=== PATIENT | male | born 1965 | race Caucasian/White ===

== ENCOUNTER → 2021-01-31 08:38 | Outpatient (CLI) | payer MEDICARE, OTHER, SELFPAY ==
[2021-01-31 11:31] LABS: COVID19 -Nasal RAPID Negative (Negative)
== END ==
PROVIDERS: Visit Provider Specialist
DX: Z20.822 Contact with and (suspected) exposure to COVID-19 (principal); Z01.812 Encounter for preprocedural laboratory examination
CPT/HCPCS: 87635; C9803

== ENCOUNTER 2021-02-01 07:54 | Day surgery (SDC) | payer MEDICARE, OTHER, SELFPAY ==
--- NOTE | 2021-02-01 | PATH_ITS ---
[facility] Accession Number: [id number] . 01 Material submitted: . body - POLYP AT 120CM . 02 Diagnosis: Polyp at 120 cm, Biopsy: Tubular adenoma. MRV 02/04/2021 1332 Local . 02 Electronically signed: . Rik Bateman MD, PhD, Pathologist NPI- [id number] . 01 Gross description: . POLYP AT 120CM: Received in formalin are multiple fragment(s) of beauchamp, soft tissue measuring 1.5 x 1.0 x 0.5 cm in aggregate submitted entirely in 1 cassette(s) /QBJ 02/02/2021 0535 Local . 02 Pathologist provided ICD-10: D12.6 . 02 CPT . 560100 Performed at: 01 [facility] [address], [place], [place] [id number] MD Kenneth Stewart MD Phone: [phone] Performed at: 02 [facility] [address] [place], [place] [id number] MD Lesley Farmer MD Phone: [phone]
[2021-02-01 08:38] VITALS: BMI 34.2
[2021-02-01 09:05] VITALS: BP 152/85; PULSE 56; RESP 16; TEMP 36.1; O2SAT 97
[2021-02-01] MEDS: LACTATED RINGERS 1,000 ML 200 ML IV (09:07)
--- NOTE | 2021-02-01 09:14 | PM.HP.1 ---
History of Present Illness History of Present Illness Chief complaint: [facility] [place] Narrative: The patient is a gentleman here for a screening colonoscopy. Last exam was 5 years ago. He had polyps removed at that time. He has chronic diarrhea related to his treatment for multiple myeloma. Patient History Medical History Chronic diarrhea Enlarged prostate Multiple myeloma Surgical History Previous back surgery Family & Social History Social History: household members spouse Tobacco & Substance use: Tobacco type cigars Smoking Status Current every day smoker alcohol intake former Substance Use Type does not use Meds Home Medications and Allergies Home Medications Medication Instructions Recorded Confirmed Type NAPROXEN (NAPROSYN) 500 mg PO PRN #0 11/17/12 02/01/21 History VITAMIN D (Vitamin D3) 1,000 unit PO QDAY #0 11/17/12 02/01/21 History acetaminophen 500 mg tablet 1,000 mg PO PRN #0 11/17/12 02/01/21 History (Tylenol Extra Strength) aspirin 325 mg tablet,delayed 325 mg PO QDAY #0 11/17/12 02/01/21 History release sildenafil 100 mg tablet (Viagra) 100 mg PO PRN #0 11/17/12 02/01/21 History lenalidomide 10 mg capsule 10 mg PO DAILY #0 03/21/16 02/01/21 History (Revlimid) potassium chloride 8 mEq 10 meq PO QDAY #0 01/10/17 History tablet,extended release (Klor-Con) tadalafil 5 mg tablet (Cialis) 5 mg PO QDAY #0 01/10/17 02/01/21 History Wellbutrin 300 mg PO DAILY 02/01/21 02/01/21 History Allergies Allergy/AdvReac Type Severity Reaction Status Date / Time cholestyramine Allergy Severe Weakness Verified 02/01/21 08:54 Review of Systems Review of Systems Narrative: No pulmonary issues. No prior heart attack. He has longstanding intermittent bigeminy. He has had multiple cardiac workups for this that have been negative. Patient has no black bowel movements. He has chronic loose stool. He is under treatment chronically for multiple myeloma. Exam Vital Signs (past 8 hours): - 02/01/21 09:05 Temperature 97.0 F L Pulse Rate 56 L Respiratory Rate 16 Blood Pressure 152/85 H Pulse Oximetry 97 Oxygen Delivery Method Room Air Narrative Exam Narrative: Pleasant cooperative patient no apparent distress. Lungs are clear to auscultation. No rales or rhonchi. Heart regular rate and rhythm no murmur gallop. Abdomen is soft nontender without mass. He has a large diastasis recti the and a reducible umbilical hernia. . Patient is alert and oriented x3. Assessment & Plan Assessment and plan (1) Screening for colon cancer: Status: Acute Assessment & Plan narrative: Patient here for screening colonoscopy. I have discussed the procedure and the rationale with the patient including risks of bleeding, perforation which would necessitate a major operation, failure to find remove all lesions and the potential to tattoo. They appeared to understand and wished to proceed. Time Spent With Patient Critical Care time: I spent a total of [] minutes of critical care time on this patient's care today; this time is exclusive of procedural time.
--- NOTE | 2021-02-01 09:18 | PM.PREOP ---
Pre-operative Note COVID-19 COVID-19 status: Negative Result date/Date tested (Pos, Neg/Pending): 01/31/21 Interval Note History & Physical reviewed/Exam performed by Physician: Yes Changes to H&P: No ASA Class (for procedural sedation): II
--- NOTE | 2021-02-01 10:08 | PM.OP.EC ---
Operative Date/Time/Diagnoses Date of procedure: 02/01/21 Time of procedure: 10:08 Pre-op diagnosis: Screening exam. Personal history of polyps. Last exam 5 years ago. Post-op diagnosis: same (Large flat polyp at 120 cm from the anal verge. Snared in pieces, cauterized and tattooed .) Procedure & Clinicians Study performed: Colonoscopy with hot snare polypectomy and injection of Ana ink. Same procedure as scheduled: Yes Indications: Screening Surgeon: Boone Matos Procedure Notes SCOAP/Timeout: Performed Procedure in detail: The patient was placed in the left lateral decubitus position and underwent IV sedation directed by the surgeon consisting of fentanyl and Versed. Digital exam was remarkable for an increased sphincter tone. It was very difficult to feel this prostate. The scope was inserted and advanced through the rectum into the sigmoid, descending, transverse, and ascending colon. The cecum was reached identified by the ileocecal valve. Beyond the valve there was particulate stool which precluded seeing the cecum well. Each time I tried to irrigate and suction more would enter the cavity. Finally it was too thick to suck out. The scope was gradually brought out. A large flat polyp was identified at about 120 cm from the anal verge. Using a hot snare I removed multiple pieces. This is a very difficult and tedious process due to the patient's constant motion of his colon with very deep breathing exhaling. Was difficult to tell if I had successfully removed all of it. I cauterized the edges. I then injected Ana ink adjacent to the lesion. I slowly brought the scope out. Scope ultimately was retroflexed in the rectum. The appearance was normal except for scarring.. The scope was removed and the patient tolerated the procedure well. Except for the cecum the prep was adequate. Scope withdrawal time: 10 minutes(29 total) Sedation minutes: 46 Specimen(s): other (Portions of polyp) Complications: none Post-procedure Recommendations: Other recommendation (Repeat colonoscopy in approximately 3 months. Consider 2 day bowel prep.) Follow up: months (2 months) Disposition: PACU
[2021-02-01] MEDS: fentaNYL 250 MCG/5 ML INJ IV (10:10)
[2021-02-01 10:11] VITALS: BP 122/66; PULSE 63; RESP 16; TEMP 36.2; O2SAT 94
[2021-02-01] MEDS: MIDAZOLAM 5 MG/5 ML VIAL IV (10:11)
[2021-02-01 10:16] VITALS: BP 126/78; PULSE 71; RESP 15; O2SAT 97
[2021-02-01 10:22] VITALS: BP 126/67; PULSE 65; RESP 16; O2SAT 97
[2021-02-01 10:27] VITALS: BP 109/64; PULSE 55; RESP 16; TEMP 36.4; O2SAT 95
[2021-02-01 10:32] VITALS: BP 109/63; PULSE 59; RESP 16; O2SAT 95
--- NOTE | 2021-02-01 10:45 | SUR.PHASEII ---
discharge instructions given to patient in detail. printed instructions highlighted. questions invited and answered. states understanding
== END 2021-02-01 10:49 | disposition home or self-care (01) ==
PROVIDERS: PCP Internal Medicine; Referring Provider Specialist; Visit Provider Specialist
PROC: 0DJD8ZZ Inspection of Lower Intestinal Tract, Via Natural or Artificial Opening Endoscopic (ICD-10-PCS; CPT 45378; principal; 2021-02-01 09:15)
DX: Z12.11 Encounter for screening for malignant neoplasm of colon (principal); Z86.010 Personal history of colon polyps; C90.00 Multiple myeloma not having achieved remission; K52.89 Other specified noninfective gastroenteritis and colitis; Z72.0 Tobacco use; D12.6 Benign neoplasm of colon, unspecified
CPT/HCPCS: 45381; 45385; 99152; 99153; J2250; J3010

== ENCOUNTER → 2021-04-02 09:49 | Outpatient (CLI) | payer MEDICARE, OTHER, SELFPAY ==
[2021-04-02 11:27] LABS: COVID19 -Nasal RAPID Negative (Negative)
== END ==
PROVIDERS: PCP Internal Medicine; Referring Provider Specialist; Visit Provider Specialist
DX: Z01.812 Encounter for preprocedural laboratory examination (principal); Z20.822 Contact with and (suspected) exposure to COVID-19
CPT/HCPCS: 87635; C9803

== ENCOUNTER 2021-04-03 07:36 | Day surgery (SDC) | payer MEDICARE, OTHER, SELFPAY ==
--- NOTE | 2021-04-03 | PATH_ITS ---
[facility] Accession Number: [id number] . 01 Material submitted: . cecum - CECAL POLYP . 02 Diagnosis: Cecum, Polyp, Biopsy: Tubular adenoma. MRV 04/05/2021 1232 Local . 02 Electronically signed: . Lesley Farmer MD, Pathologist NPI- [id number] . 01 Gross description: . CECAL POLYP: Received in formalin are 3 fragment(s) of beauchamp, soft tissue measuring 0.4 x 0.3 x 0.3 cm to 0.3 x 0.2 x 0.2 cm submitted entirely in 1 cassette(s) /QBJ 04/04/2021 0754 Local . 02 Pathologist provided ICD-10: D12.0 . 02 CPT . 139563 Performed at: 01 [facility] [address] [id number] MD Kenneth Stewart MD Phone: [phone] Performed at: 02 [facility] [address] [place], [place] [id number] MD Lesley Farmer MD Phone: [phone]
[2021-04-03 07:50] VITALS: BP 151/87; PULSE 60; RESP 14; TEMP 36.3; O2SAT 97; BMI 34.2
[2021-04-03] MEDS: LACTATED RINGERS 1,000 ML 200 ML IV (08:23)
--- NOTE | 2021-04-03 08:27 | SUR.PREOP ---
preop-prepared for colonoscopy. Dr Matos here to see patient. patient spoke to MD reardon different instructions on prep. consent obtained. Ready for procedure.
--- NOTE | 2021-04-03 08:33 | PM.HP.1 ---
History of Present Illness History of Present Illness Date Patient Seen: 04/03/21 Time Patient Seen: 08:34 Chief complaint: DX COLONOSCOPY Narrative: The patient is a gentleman here for a colonoscopy. He had a colonoscopy about 3 months ago and I found a large flat polyp. I was concerned I may not have completely remove it and he is here in follow-up. Also, a portion of his colonoscopy was poorly seen due to his prep in we will attempt to evaluate his entire colon. Patient History Medical History Chronic diarrhea Enlarged prostate Multiple myeloma Surgical History Previous back surgery Family & Social History Social History: household members spouse Tobacco & Substance use: Tobacco type cigars Smoking Status Current every day smoker alcohol intake former Substance Use Type does not use Meds Home Medications and Allergies Home Medications Medication Instructions Recorded Confirmed Type VITAMIN D (Vitamin D3) 1,000 unit PO QDAY #0 11/17/12 04/03/21 History acetaminophen 500 mg tablet 1,000 mg PO PRN #0 11/17/12 04/03/21 History (Tylenol Extra Strength) aspirin 325 mg tablet,delayed 325 mg PO QDAY #0 11/17/12 04/03/21 History release lenalidomide 10 mg capsule 10 mg PO DAILY #0 03/21/16 04/03/21 History (Revlimid) potassium chloride 8 mEq 10 meq PO QDAY #0 01/10/17 04/03/21 History tablet,extended release (Klor-Con) tadalafil 5 mg tablet (Cialis) 5 mg PO QDAY #0 01/10/17 04/03/21 History Wellbutrin 300 mg PO DAILY 02/01/21 04/03/21 History sodium,potassium,mag sulfates 17.5 See Rx Instructions PO .COMPLEX 03/06/21 04/03/21 Rx gram-3.13 gram-1.6 gram oral soln #354 ml (Suprep Bowel Prep Kit) doxazosin 2 mg tablet 2 mg PO DAILY 04/03/21 04/03/21 History levothyroxine 125 mcg capsule 0.125 mcg PO DAILY 04/03/21 04/03/21 History (Tirosint) Allergies Allergy/AdvReac Type Severity Reaction Status Date / Time cholestyramine Allergy Severe Weakness Verified 04/03/21 08:02 Review of Systems Review of Systems Narrative: No chest pain or breathing issues. No black or bloody bowel movements. No seizures or blackouts. Exam Vital Signs (past 8 hours): - 04/03/21 07:50 Temperature 97.4 F L Pulse Rate 60 Respiratory Rate 14 Blood Pressure 151/87 H Pulse Oximetry 97 Oxygen Delivery Method Room Air Narrative Exam Narrative: Pleasant cooperative patient no apparent distress. Lungs are clear to auscultation. No rales or rhonchi. Heart regular rate and rhythm no murmur gallop. Abdomen is soft nontender without mass. No obvious hernias. Patient is alert and oriented x3. Assessment & Plan Assessment and plan (1) Colon polyp: Status: Acute Assessment & Plan narrative: Repeat colonoscopy. I have discussed the procedure and the rationale with the patient including risks of bleeding, perforation which would necessitate a major operation, failure to find remove all lesions and the potential to tattoo. He appeared to understand and wished to proceed. Time Spent With Patient Critical Care time: I spent a total of [] minutes of critical care time on this patient's care today; this time is exclusive of procedural time.
--- NOTE | 2021-04-03 08:43 | PM.PREOP ---
Pre-operative Note COVID-19 COVID-19 status: Negative Result date/Date tested (Pos, Neg/Pending): 04/02/21 Interval Note History & Physical reviewed/Exam performed by Physician: Yes Changes to H&P: No ASA Class (for procedural sedation): III
--- NOTE | 2021-04-03 09:26 | PM.OP.COLON ---
Operative Date/Time/Diagnoses Date of procedure: 04/03/21 Time of procedure: 09:26 Pre-op diagnosis: History of a large flat polyp. Post-op diagnosis: same (Additional polyp in the cecum. No evidence of residual polyp seen on prior study.) Procedure & Clinicians Study performed: Colonoscopy with cold biopsy Same procedure as scheduled: Yes Indications: Re-evaluate area of a large flat polyp. Complete colonoscopy due to poor prep of the cecal area. Surgeon: Boone Matos Procedure Notes SCOAP/Timeout: Performed Procedure in detail: The patient was placed in the left lateral decubitus position and underwent IV sedation directed by the surgeon consisting of fentanyl and Versed. Digital exam was remarkable for an increased sphincter tone. I could not feel is prostate well. The scope was inserted and retroflexed at the beginning of the procedure. The appearance was unremarkable. The scope was then advanced through the rectum into the sigmoid, descending, transverse, and ascending colon. A stiffener was inserted and we reach the cecum. The cecum was reached identified by the ileocecal valve . There was a small polyp right at the edge of the cecum which I biopsied and appeared to be completely removed. Scope was gradually brought out. I carefully examined the area of tattooing I could not see any evidence of a polyp despite multiple successful attempts at visualizing the area. This tattooing was located near the ascending colon/hepatic flexure junction. No Other polyps Were found. Coming slowly through the anal verge I did note internal hemorrhoids. There were no ulcerations. The scope was removed and the patient tolerated the procedure well. The prep was very good Scope withdrawal time: 14 minutes(17 total) Sedation minutes: 36 Findings: polyp(s) Specimen(s): other (Cecal polyp) Complications: none Post-procedure Recommendations: Colonoscopy in 3 years Follow up: as needed Disposition: PACU
[2021-04-03] MEDS: MIDAZOLAM 5 MG/5 ML VIAL IV (09:28)
[2021-04-03] MEDS: fentaNYL 250 MCG/5 ML INJ IV (09:29)
[2021-04-03 09:31] VITALS: BP 127/89; PULSE 60; RESP 12; TEMP 36.6; O2SAT 94
[2021-04-03 09:34] VITALS: BP 113/86; PULSE 61; RESP 12; O2SAT 95
[2021-04-03 09:38] VITALS: BP 132/84; PULSE 62; RESP 12; O2SAT 96
[2021-04-03 09:44] VITALS: BP 116/82; PULSE 70; RESP 16; O2SAT 97
[2021-04-03 09:50] VITALS: BP 120/69; PULSE 70; RESP 15; TEMP 36.2; O2SAT 95
== END 2021-04-03 10:06 | disposition home or self-care (01) ==
PROVIDERS: PCP Internal Medicine; Referring Provider Specialist; Visit Provider Specialist
PROC: 0DJD8ZZ Inspection of Lower Intestinal Tract, Via Natural or Artificial Opening Endoscopic (ICD-10-PCS; CPT 45378; principal; 2021-04-03 08:45)
DX: D12.0 Benign neoplasm of cecum (principal); F17.210 Nicotine dependence, cigarettes, uncomplicated
CPT/HCPCS: 45380; 99152; 99153; J2250; J3010

== ENCOUNTER 2022-02-03 09:36 | Emergency (ER) | payer MEDICARE, OTHER, SELFPAY ==
[2022-02-03 09:49] VITALS: BP 183/87; PULSE 58; RESP 18; TEMP 36.9; O2SAT 98; BMI 34.2
--- NOTE | 2022-02-03 09:55 | DI.US.S_ITS ---
PROCEDURE: US PERIPH VENOUS LOW EXTREM LT INDICATIONS: MEDIAL THIGH LUMP TECHNIQUE: Real-time imaging, as well as color and pulse Doppler interrogation, were performed of the lower extremity deep veins from the inguinal ligament to the popliteal fossa. COMPARISON: None. FINDINGS: The common femoral, femoral and popliteal veins are normally compressible, and free of intraluminal thrombus. Color and pulse Doppler demonstrate normal phasic intraluminal flow. There is normal augmentation response to distal compression maneuver. IMPRESSION: No evidence of deep venous thrombosis, left lower extremity Approved by: Jayy Clayton M.D. on 02/03/2022 at 10:02
--- NOTE | 2022-02-03 09:58 | ED_ITS ---
HPI - General Adult General Chief complaint: Extremity Problem,Nontraumatic Stated complaint: deep vain thrombosis per pt Time Seen by Provider: 02/03/22 09:41 Source: patient Mode of arrival: Ambulatory History of Present Illness HPI narrative: 56-year-old gentleman with history of multiple myeloma currently on Revlimid chemotherapy and takes an aspirin a day. Followed at [facility]. He notes that he has not recently been increasingly short of breath he exercises 3 days a week at the gym he does have chronic low back pain that he manages with exercise and stretching. He recently noted a finding in his left upper leg that he is concerned may be a DVT, talk to his nurse at the [facility] who recommended an ultrasound to confirm that this is not the case given his current Revlimid course. He describes no palpitations, chest pain, dyspnea, orthopnea. He does not have any edema in the lower extremities. No recent fever, cough or chills. Related Data Home Medications Medication Instructions Recorded Confirmed acetaminophen 500 mg tablet 1,000 mg PO PRN pain ##0 11/17/12 04/03/21 (Tylenol Extra Strength) aspirin 325 mg tablet,delayed 325 mg PO QDAY ##0 11/17/12 02/03/22 release lenalidomide 10 mg capsule 10 mg PO DAILY chemo ##0 03/21/16 02/03/22 (Revlimid) potassium chloride 8 mEq 10 meq PO QDAY ##0 01/10/17 02/03/22 tablet,extended release (Klor-Con) tadalafil 5 mg tablet (Cialis) 5 mg PO QDAY ##0 01/10/17 04/03/21 doxazosin 2 mg tablet 2 mg PO DAILY 04/03/21 02/03/22 levothyroxine 125 mcg capsule 0.125 mcg PO DAILY 04/03/21 02/03/22 (Tirosint) Previous Rx's Medication Instructions Recorded sodium,potassium,mag sulfates 17.5 See Rx Instructions PO .COMPLEX 03/06/21 gram-3.13 gram-1.6 gram oral soln #354 mL (Suprep Bowel Prep Kit) Allergies Allergy/AdvReac Type Severity Reaction Status Date / Time cholestyramine Allergy Severe Weakness Verified 02/03/22 09:53 Review of Systems Review of Systems Narrative: Remainder of complete review of systems is otherwise unremarkable except for that included in the HPI. Patient History Medical History Chronic diarrhea Enlarged prostate Multiple myeloma Surgical History Previous back surgery Social History household members: spouse Smoking Status: Current some day smoker alcohol intake: former Smoking Status: Current some day smoker alcohol intake frequency: other Substance Use Type: does not use Exam Initial Vital Signs Initial Vital Signs: Vital Signs Temperature 98.5 F 02/03/22 09:49 Pulse Rate 58 L 02/03/22 09:49 Respiratory Rate 18 02/03/22 09:49 Blood Pressure 183/87 H 02/03/22 09:49 Pulse Oximetry 98 02/03/22 09:49 Oxygen Delivery Method 02/03/22 09:49 General: Healthy appearing, in no acute distress. Able to give a complete and coherent history. Well-nourished well-developed HEENT: Moist mucous membranes, normal sclera with reactive pupils, Neck: No JVD, supple Respiratory: Lungs are clear to auscultation, no wheezing no rales no rhonchi. Full and symmetrical air movement Cardiac: Regular rate and rhythm no murmurs no bruits Abdomen: Soft, nontender, good bowel tones, no flank pain Skin: Warm and dry, no rashes Neurologic: Grossly neurologically intact with no obvious asymmetries or abnormalities Extremities: Area of concern in the right upper thigh is notable only when he is standing and is a varicose vein without superficial thrombophlebitis. He has no significant swelling or edema. There is no tenderness in the leg or calf. Psych: Cooperative, appropriate insight and affect Course Orders Ordered: ED Orders 02/03/22 09:55 US perip venous low extrem lt Stat Vital Signs Vital signs: Vital Signs - 8 hr 02/03/22 09:49 02/03/22 11:31 Temperature 98.5 F Pulse Rate 58 L 60 Respiratory Rate 18 16 Blood Pressure 183/87 H 158/84 H Pulse Oximetry 98 99 Oxygen Delivery Method Room Air Room Air Medical Decision Making Imaging Data U: Radiologist's Impression: FINDINGS:? The common femoral, femoral and popliteal veins are normally compressible, and free of intraluminal thrombus.? Color and pulse Doppler demonstrate normal phasic intraluminal flow.? There is normal augmentation response to distal compression maneuver. ? ? IMPRESSION:? No evidence of deep venous thrombosis, left lower extremity ? ? ? Approved by: Jayy Clayton M.D. on 02/03/2022 at 10:02? [facility] Narrative Medical decision making narrative: 56-year-old gentleman sent in by his oncology team for DVT rule out in the left leg with concerns for abnormality that he appreciated that on clinical exam does appear to be a simple varicose vein in the upper thigh. Go ahead and order the ultrasound for reassurance all the way around. His PERC score is negative I do not suspect pulmonary emboli. Reassurance is given, copy of ultrasound read is given to the patient. He is safe for home discharge Discharge Plan Departure Patient Disposition: Home Clinical Impression: Varicose vein of leg Qualifiers: Varicose vein complication: asymptomatic Laterality: left Qualified Code(s): I83.92 - Asymptomatic varicose veins of left lower extremity Instructions: DI for Varicose Veins Activity Restrictions/Additional Instructions: Thank you for coming in today Your ultrasound showed no blood clots. The finding that you are concerned with is a varicose vein that also has no blood clots. I have given you a copy of your ultrasound report. Varicose veins do not need any additional treatment. If they are growing or painful because they seem to be or swelling compression garments can be helpful. I doubt that this is going to bother you too much this high up in your thigh. If you find that you are getting worse or develop any new symptoms, please feel free to return to the emergency department for further evaluation. Prescriptions: No Action acetaminophen [Tylenol Extra Strength] 500 MG tablet 1,000 mg PO PRN Qty: 0 aspirin 325 MG tablet,delayed release (DR/EC) 325 mg PO QDAY Qty: 0 lenalidomide [Revlimid] 10 MG capsule 10 mg PO DAILY Qty: 0 potassium chloride [Klor-Con 8] 8 MEQ tablet extended release 10 meq PO QDAY Qty: 0 tadalafil [Cialis] 5 MG tablet 5 mg PO QDAY Qty: 0 Suprep Bowel Prep Kit 17.5-3.13-1.6 gram recon soln See Rx Instructions PO .COMPLEX Qty: 354 0RF Rx Instructions: DILUTE; drink full amount early evening before AND next morning at least 2 hr before procedure; follow w 32 oz. water PO doxazosin 2 mg Tablet 2 mg PO DAILY levothyroxine [Tirosint] 125 mcg Capsule 0.125 mcg PO DAILY Referrals: Sona Hamilton MD [Primary Care Provider] -
[2022-02-03 11:31] VITALS: BP 158/84; PULSE 60; RESP 16; O2SAT 99
== END 2022-02-03 12:19 | disposition home or self-care (01) ==
PROVIDERS: Emergency Provider Emergency Medicine; PCP Physician Assistant
DX: I83.92 Asymptomatic varicose veins of left lower extremity (principal); Z79.899 Other long term (current) drug therapy
CPT/HCPCS: 93971; 99281; 99283

== ENCOUNTER → 2022-12-05 14:51 | Outpatient (CLI) | payer MEDICARE, OTHER, SELFPAY ==
--- NOTE | 2022-12-05 | DI.MRI.S_ITS ---
PROCEDURE: MR LUMBAR SPINE WO CON INDICATIONS: SPONDYLOSIS W/O MYELOPATHY AND RADICULOPATHY TECHNIQUE: Noncontrast sagittal T1 spin echo and T2 fast echo, sagittal STIR, and T2 fast spin echo through the lumbar spine. In cases with scoliosis, additional coronal T2 fast spin echo may be performed. COMPARISON: [facility], CT, ABDOMEN/PELVIS WITH CONTRAST, 10/29/2013, 22:09. [facility] Outside Film, CR, XR LUMBAR SPINE 2 OR 3 VIEWS, 09/18/2022, 11:30. FINDINGS: Image quality: Excellent. Alignment and Curvature: There is normal bony alignment. Bone Marrow: Marrow is of normal overall signal. No acute vertebral body compression fractures. Spinal Cord: Conus medullaris terminates at the L1 level. Visualized cord demonstrates normal signal and size. Paraspinous Soft Tissues: No paravertebral masses. Postoperative changes can be seen, with and L2 corpectomy with strut graft. Left-sided postoperative hardware can be seen spanning from L1 through L3. The L3 screws are noted to be fractured. However, this is not well seen on this MRI examination. T12-L1: [id number] loss of disc height and disc signal can be seen. No neural foraminal narrowing can be seen. No central canal narrowing. L1-L2: Moderate to severe loss of disc height and disc signal can be seen. Mild generalized disc bulge is seen. No significant neural foraminal or central canal narrowing can be seen. L2-L3: Least moderate loss of disc height and disc signal can be seen. Mild generalized disc bulge is seen. Mild facet joint hypertrophy is seen. There is moderate right-sided and no left-sided neural foraminal narrowing. No significant central canal narrowing is seen. L3-L4: Mild loss of disc height is seen. Loss of disc signal is seen. Reactive marrow endplate changes are seen which are hypointense on T1-weighted imaging and hyperintense on T2 weighted imaging, which is most consistent with edema (Modic type I changes). Mild to moderate disc bulge is seen, with a central disc protrusion. Moderate facet joint hypertrophy is seen. Associated hypertrophy of the ligamentum flavum can be seen. Fluid is seen within the facet joints themselves. There is at least moderate bilateral neural foraminal narrowing seen, left worse than right. At least moderate central canal narrowing is seen. L4-L5: Mild loss of disc height is seen. Loss of disc signal is seen. There is a subacute Schmorl's node seen along the superior endplate of L5. Moderate disc bulge is seen, which is eccentric to the right. Moderate to prominent facet hypertrophy is seen. Associated hypertrophy of the ligamentum flavum can be seen. There is moderate to severe bilateral neural foraminal narrowing seen, with an associated a degree of compression seen upon the exiting nerve roots. Moderate central canal narrowing is seen. L5-S1: Moderate loss of disc height is seen. Loss of disc signal is seen. Mild to moderate disc bulge is seen, which is eccentric to the left. At least moderate facet hypertrophy is seen. Mild to moderate bilateral neural foraminal narrowing can be seen. Minimal central canal narrowing is seen. IMPRESSION: Multiple levels of lumbar spine degenerative change can be seen, which are worst at L4-L5 and L5-S1. L1 through L3 postoperative hardware, which is better demonstrated by plain film. Dictated by: Guicho Wiseman M.D. on 12/05/2022 at 15:58 Approved by: Guicho Wiseman M.D. on 12/05/2022 at 16:03
== END ==
PROVIDERS: PCP Physician Assistant; Referring Provider Physical Medicine & Rehabilitation; Visit Provider Physical Medicine & Rehabilitation
DX: M47.816 Spondylosis without myelopathy or radiculopathy, lumbar region (principal); M47.817 Spondylosis without myelopathy or radiculopathy, lumbosacral region
CPT/HCPCS: 72148

== ENCOUNTER 2023-12-12 19:49 | Emergency (ER) | payer MEDICARE, OTHER, SELFPAY ==
[2023-12-12] VITALS (10 sets, daily range): BP systolic 148–186; BP diastolic 81–110; PULSE 45–75; RESP 17; TEMP 36.4; O2SAT 96–98; BMI 35.2
--- NOTE | 2023-12-12 20:44 | ED_ITS ---
HPI - Back Pain/Injury General Chief Complaint: Back Pain/Injury Stated Complaint: back pain Time Seen by Provider: 12/12/23 20:05 Source: patient and family History of Present Illness HPI Narrative: 58-year-old male has history of chronic back pain, remote traumatic injury with some form of surgery, has also diagnosis of multiple myeloma and ongoing treatment, followed by Oncology at [facility] in [place], in fact due for next follow up appointment in 2 days Thursday upcoming. He has increasing low back pain last couple of days, not responsive to khol-gkl-[id number] medications. No numbness or tingling to perineum, no weakness or numbness to legs. No fevers or chills. No trauma, falls. He has been doing recent yard work but no injury recalled, no unusual or significant activities. Related Data Home Medications Medication Instructions Recorded Confirmed aspirin 325 mg tablet,delayed 325 mg PO QDAY ##0 11/17/12 11/16/23 release lenalidomide 10 mg capsule 10 mg PO DAILY chemo ##0 03/21/16 11/16/23 (Revlimid) doxazosin 2 mg tablet 8 mg PO DAILY 11/16/23 11/16/23 levothyroxine 150 mcg tablet 150 mcg PO DAILY 11/16/23 11/16/23 (Synthroid) omeprazole 20 mg capsule,delayed 20 mg PO DAILY 11/16/23 11/16/23 release potassium citrate 10 mEq (1,080 10 meq PO DAILY 11/16/23 11/16/23 mg) tablet,extended release tadalafil 5 mg tablet (Cialis) 5 mg PO DAILY 11/16/23 11/16/23 venlafaxine 37.5 mg 37.5 mg PO DAILY 11/16/23 11/16/23 capsule,extended release 24 hr Previous Rx's Medication Instructions Recorded sodium,potassium,mag sulfates 17.5 See Rx Instructions PO .COMPLEX 11/16/23 gram-3.13 gram-1.6 gram oral soln #354 mL (Suprep Bowel Prep Kit) methocarbamol 500 mg tablet 500 mg PO TID 7 days #21 tabs 12/12/23 Allergies Allergy/AdvReac Type Severity Reaction Status Date / Time cholestyramine Allergy Severe Weakness Verified 12/12/23 19:54 colesevelam [From WelChol] AdvReac Verified 12/12/23 19:54 colestipol AdvReac Verified 12/12/23 19:54 sildenafil AdvReac Verified 12/12/23 19:54 Review of Systems Review of Systems Narrative: See HPI Patient History Medical History Chronic diarrhea Enlarged prostate Multiple myeloma Surgical History Previous back surgery Social History household members: spouse Smoking Status: Current some day smoker alcohol intake: former Smoking Status: Current some day smoker tobacco type: cigars alcohol intake frequency: other Substance Use Type: does not use Exam Narrative Exam Narrative: GENERAL: Well-developed patient, in mild distress. HEAD: Atraumatic. Normocephalic. EYES: Pupils equal round and reactive. Extraocular motions intact. No scleral icterus. No injection or drainage. ENT: Nose without bleeding, purulent drainage. Throat without erythema, tonsillar hypertrophy or exudate. Airway patent. NECK: Trachea midline. Non tender CARDIOVASCULAR: Regular rate and rhythm without murmurs, gallops, or rubs. RESPIRATORY: Clear to auscultation. Breath sounds equal bilaterally. No wheezes, rales, or rhonchi. GASTROINTESTINAL: Abdomen soft, non-tender, nondistended. EXTREMITIES: No edema or joint tenderness. BACK: Nontender without deformity or crepitance. No flank tenderness. No flank area tenderness. No lumbar tenderness to midline or left paraspinal musculature or right paraspinal musculature. No bruising or redness to the skin, no vesicles or other rash obvious NEURO: AOx3. SKIN: No rash or erythema of visible areas Initial Vital Signs Initial Vital Signs: Vital Signs Pulse Rate 74 12/12/23 19:52 Pulse Oximetry 98 12/12/23 19:52 Course Orders Ordered: ED Orders 12/12/23 21:26 CT lumbar spine wo con Stat Discontinued Medications Ketorolac Tromethamine (Ketorolac 30 Mg/Ml Vial) 30 mg IM NOW ONE Stop: 12/12/23 21:24 Last Admin: 12/12/23 21:29 Dose: 30 mg Documented By: AB Methocarbamol (Methocarbamol 500 Mg Tablet) 500 mg PO NOW ONE Stop: 12/12/23 21:24 Last Admin: 12/12/23 21:28 Dose: 500 mg Documented By: AB Vital Signs Vital signs: Vital Signs - 8 hr 12/12/23 19:52 12/12/23 19:53 12/12/23 19:53 Temperature Pulse Rate 74 72 Respiratory Rate Blood Pressure 186/110 H Pulse Oximetry 98 98 Oxygen Delivery Method 12/12/23 19:55 12/12/23 19:55 12/12/23 19:55 Temperature 97.5 F L Pulse Rate 75 67 Respiratory Rate 17 Blood Pressure 186/110 H 171/99 H Pulse Oximetry 98 98 Oxygen Delivery Method Room Air Room Air 12/12/23 20:00 12/12/23 20:00 12/12/23 20:30 Temperature Pulse Rate 57 L Respiratory Rate Blood Pressure 148/88 H 151/81 H Pulse Oximetry 96 Oxygen Delivery Method 12/12/23 20:30 12/12/23 21:23 12/12/23 21:30 Temperature Pulse Rate 51 L 50 L 53 L Respiratory Rate Blood Pressure Pulse Oximetry 97 97 96 Oxygen Delivery Method Room Air 12/12/23 21:30 12/12/23 22:00 12/12/23 22:30 Temperature Pulse Rate 47 L 45 L Respiratory Rate Blood Pressure 163/90 H Pulse Oximetry 96 97 Oxygen Delivery Method 12/12/23 23:00 Temperature Pulse Rate 47 L Respiratory Rate Blood Pressure Pulse Oximetry 97 Oxygen Delivery Method Room Air MDM - Back Pain/Injury Imaging Data CT lumbar spine: Radiologist's Impression: [place] [address] CT Scan Report Signed Patient: Trent Avila MR#: [id number] : 1965 Acct:[id number] Age/Sex: 58 / M Date of Service: 12/12/23 Loc: ED Accession Number: [id number] Procedure: CT lumbar spine wo con Ordering Provider: Lyndon Avila MD PROCEDURE: CT LUMBAR SPINE WO CON INDICATIONS: LBP, hx remote back surgery trauma, muliple myeloma TECHNIQUE: Noncontrast 3 mm thick sections acquired from the T12 level to the sacrum. Sagittal and coronal reformats were constructed. For radiation dose reduction, the following was used: automated exposure control. COMPARISON: [facility], , LUMBAR TRANSFORAMINAL ELYSSA, 04/21/2023, 14:17. [facility], RF, LUMBAR MEDIAL BRANCH BLOCK, 02/03/2023, 8:55. MR, MR LUMBAR SPINE WO CON, 12/05/2022, 14:56. FINDINGS: Image quality: Excellent. Bones: There is normal bony alignment. No acute vertebral body compression fractures. No suspicious blastic bony lesions. No pars defects. Note is made of a previously documented vertically oriented intervertebral fixation device spanning from L1- L2 through L 2-L3. There is irregularity at the endplates of L3-L4. Associated paravertebral and prevertebral soft tissue swelling is not seen. This was not clearly present on plain film imaging 04/21/23 obtained during injection procedure. Soft tissues: No retroperitoneal masses or hematomas. Visualized aorta is normal in caliber. IMPRESSION: No acute compression fracture found. Interval change in appearance of the L3-L4 endplates without definite adjacent inflammatory change. This could represent degenerative change but infection cannot be entirely excluded as the cause of that appearance. Multifocal osteoblastic or osteolytic lesions suggestive of multiple myeloma are not seen. Follow-up nuclear medicine bone scan or tagged white blood cell scan may be warranted depending on the clinical status. Dictated by: Sylvester Devlin M.D. on 12/12/2023 at 22:20 Approved by: Sylvester Devlin M.D. on 12/12/2023 at 22:27 MDM Narrative Medical decision making narrative: Chronic low back pain, recently worsened for unclear reason, prior remote trauma and surgical intervention, ongoing treatment for multiple myeloma, due to see his oncologist at [facility] in two days, would like CT imaging of his low back. Afebrile, sirs screen negative. Leg lift exam unremarkable at 45? bilateral. No signs or symptoms concerning for current cauda equina syndrome. CT lumbar spine imaging requested per patient request. IM Toradol, p.o. Robaxin muscle relaxant. Symptoms improved, CT report pending. CT lumbar sacral spine. Impression: ?No acute compression fracture found. Interval change in appearance from the L3-L4 endplates without definite adjacent inflammatory change. This could represent degenerative change but infection can not be entirely excluded as cause of that appearance. Multifocal osteoblastic and osteolytic lesion suggestive of multiple myeloma are not seen. Follow up nuclear medicine bone scan or tight white blood cell scan may be warranted depending on the clinical status. See radiology report Copy of CT lumbar spine report given to patient, copy of exam onto disc as well. We discussed further testing recommended to be considered, unclear if tagged white blood cell count testing could even be done here, nuclear medicine test might be able to be done here but unclear if this could be done tomorrow without ordering the reagent, there was reference on the scan to a previous MRI of the spine last year, we could have the patient stay to get repeat MRI spine imaging to see if that is helpful to make any additional recommendations. All these options were discussed with patient, who declines them for now. He would like to take his report and the images to his oncology appointment in 2 days at [facility]. He would be interested in a course of muscle relaxant continued Robaxin, sent to his pharmacy. Encouraged to consider use of anti- inflammatory medication, offered Celebrex that might be gently on his stomach, he would prefer eive-zaw-[id number] ibuprofen or naproxen which he will take. Follow up with Oncology in 2 days Thursday as scheduled in [facility]. Return earlier to this/nearest emergency department for any change worsening symptoms or any concerns prior Critical Care Time Critical Care Time Critical Care Time: Yes Total Critical Care Time: 31 Attestation: The high probability of a clinically significant, sudden or life threatening deterioration of the [neurologic, musculoskeletal, orthopedic] system(s) required my full and direct attention, intervention and personal management. The aggregate critical care time was [31] minutes. This time is in addition to time spent performing reported procedures but includes the following: [x] Data Review and interpretation [x] Patient assessment and monitoring of vital signs [x] Documentation [x] Medication orders and management Discharge Plan Departure Patient Disposition: Home Clinical Impression: Acute exacerbation of chronic low back pain, History of multiple myeloma, History of lumbosacral spine surgery Instructions: DI for Low Back Pain Activity Restrictions/Additional Instructions: History of chronic low back pain, remote traumatic injury, also history of multiple myeloma with ongoing treatment and evaluation through oncology [facility] in [place], next oncology appointment Thursday in 2 more days. No fever noted on triage, unremarkable vital signs at triage. Intramuscular injection of Toradol given, with oral dose of muscle relaxant, symptoms improved. We discussed imaging CT lumbar spine that could be done now, to provide information for your oncology follow up. CT scan was performed, th ere was some concern about some change at L3-L4, to consider possible infectious changes, however there is no inflammatory changes mentioned on the scan. The radiologist who read the study did discussed further imaging that might include nuclear medicine testing or tagged white blood cell casting, unclear if this could be done over the weekend here at all. You declined transfer for emergent imaging. We also discussed staying for possible repeat interval MRI imaging of the lumbar spine, to compare to December 2022 study referenced, declined for now as well. Trial of muscle relaxant Robaxin, prescription sent to your pharmacy. Consider use of [id number] anti-inflammatory medications as well, such as ibuprofen or naproxen. Follow up with your regular oncologist in 2 days on Thursday12/15/2023 as scheduled. Return earlier to this/nearest emergency department for any change worsening symptoms or any concerns prior Prescriptions: New methocarbamol 500 mg tablet 500 mg PO TID 7 Days Qty: 21 0RF No Action aspirin 325 MG tablet,delayed release (DR/EC) 325 mg PO QDAY Qty: 0 lenalidomide [Revlimid] 10 MG capsule 10 mg PO DAILY Qty: 0 sodium,potassium,mag sulfates [Suprep Bowel Prep Kit] 17.5-3.13-1.6 gram recon soln See Rx Instructions PO .COMPLEX Qty: 354 0RF Rx Instructions: take as directed by Physician tadalafil [Cialis] 5 mg tablet 5 mg PO DAILY omeprazole 20 mg capsule,delayed release(DR/EC) 20 mg PO DAILY potassium citrate 10 mEq (1,080 mg) tablet extended release 10 meq PO DAILY levothyroxine [Synthroid] 150 mcg tablet 150 mcg PO DAILY venlafaxine 37.5 mg capsule,extended release 24hr 37.5 mg PO DAILY doxazosin 2 mg tablet 8 mg PO DAILY Referrals: Rain Caruso ARNP [Primary Care Provider] - Stand Alone Forms: Patient Portal/API
--- NOTE | 2023-12-12 21:26 | DI.CT.S_ITS ---
PROCEDURE: CT LUMBAR SPINE WO CON INDICATIONS: LBP, hx remote back surgery trauma, muliple myeloma TECHNIQUE: Noncontrast 3 mm thick sections acquired from the T12 level to the sacrum. Sagittal and coronal reformats were constructed. For radiation dose reduction, the following was used: automated exposure control. COMPARISON: [facility], , LUMBAR TRANSFORAMINAL ELYSSA, 04/21/2023, 14:17. [facility], , LUMBAR MEDIAL BRANCH BLOCK, 02/03/2023, 8:55. MR, MR LUMBAR SPINE WO CON, 12/05/2022, 14:56. FINDINGS: Image quality: Excellent. Bones: There is normal bony alignment. No acute vertebral body compression fractures. No suspicious blastic bony lesions. No pars defects. Note is made of a previously documented vertically oriented intervertebral fixation device spanning from L1-L2 through L 2-L3. There is irregularity at the endplates of L3-L4. Associated paravertebral and prevertebral soft tissue swelling is not seen. This was not clearly present on plain film imaging 04/21/23 obtained during injection procedure. Soft tissues: No retroperitoneal masses or hematomas. Visualized aorta is normal in caliber. IMPRESSION: No acute compression fracture found. Interval change in appearance of the L3-L4 endplates without definite adjacent inflammatory change. This could represent degenerative change but infection cannot be entirely excluded as the cause of that appearance. Multifocal osteoblastic or osteolytic lesions suggestive of multiple myeloma are not seen. Follow-up nuclear medicine bone scan or tagged white blood cell scan may be warranted depending on the clinical status. Dictated by: Sylvester Devlin M.D. on 12/12/2023 at 22:20 Approved by: Sylvester Devlin M.D. on 12/12/2023 at 22:27
[2023-12-12] MEDS: methocarbamoL 500 MG TABLET PO (21:28)
[2023-12-12] MEDS: KETOROLAC 30 MG/ML VIAL IM (21:29)
== END 2023-12-12 23:16 | disposition home or self-care (01) ==
PROVIDERS: Emergency Provider Emergency Medicine; PCP Nurse Practitioner Family
DX: M54.50 Low back pain, unspecified (principal); C90.00 Multiple myeloma not having achieved remission
CPT/HCPCS: 72131; 96372; 99283; 99284; J1885

== ENCOUNTER 2024-02-04 09:07 | Day surgery (SDC) | payer MEDICARE, OTHER, SELFPAY ==
--- NOTE | 2024-02-04 | PATH_ITS ---
[facility] Accession Number: [id number] No. of containers..02 Tissue . 01 Material submitted: . PART A: gastrointestinal site - ANTRUM PART B: colon - ASCENDING POLYPS . 01 Diagnosis: Part A: ANTRUM: Gastric mucosa with mild chronic inflammation. No Helicobacter organisms identified. No intestinal metaplasia, dysplasia, or malignancy identified. . Part B: ASCENDING POLYPS: Tubulovillous adenoma(s). No high-grade dysplasia or malignancy identified. STO 02/08/20241748 Local . 01 Electronically signed: . Kenneth Stewart MD, Pathologist NPI- [id number] . 01 Gross description: . A. Received in formalin with two patient identifiers and antrum, are three beauchamp soft tissue fragments, 0.2 to 0.4 cm in greatest dimension, submitted in A1. . B. Received in formalin with two patient identifiers and ascending polyps, are multiple beauchamp to yellow soft tissue fragments aggregating to 2.5 x 1.8 x 0.3 cm, filtered and submitted in B1. ([id number]) /MRV 02/08/20241748 Local . 01 Microscopic: . Part A: ANTRUM: An immunohistochemical stain was performed to evaluate for Helicobacter organisms and is negative. The control stains appropriately. * This test was developed and its performance characteristics determined by [employer]. It has not been cleared or approved by the U.S. Food and Drug Administration. The FDA has determined that such clearance or approval is not necessary. This test is used for clinical purposes. It should not be regarded as investigational or for research. . 01 Pathologist provided ICD-10: D12.2, K29.50 . 01 CPT . 794243, 688430, I45148 Specimen Comment: A courtesy copy of this report has been sent to [phone] Performed at: [address] [facility][note 2], [place], [place] [id number] MD Kenneth Stewart MD Phone: [phone]
[2024-02-04 09:51] VITALS: BP 143/80; PULSE 50; RESP 16; TEMP 36.4; O2SAT 98
[2024-02-04] MEDS: LACTATED RINGERS 1,000 ML 42 ML IV (09:59)
--- NOTE | 2024-02-04 10:20 | PM.HP.1 ---
History of Present Illness History of Present Illness Date Patient Seen: 02/04/24 Time Patient Seen: 10:20 Chief complaint: SDC Narrative: Trent is here for his EGD and colonoscopy. See office note from November for details. [facility] Medical History Chronic diarrhea Enlarged prostate Multiple myeloma Surgical History Previous back surgery Social History household members: spouse Smoking Status: Current some day smoker alcohol intake: former Meds Home Medications and Allergies Home Medications Medication Instructions Recorded Confirmed Type aspirin 325 mg tablet,delayed 325 mg PO QDAY ##0 11/17/12 02/04/24 History release lenalidomide 10 mg capsule 10 mg PO DAILY chemo ##0 03/21/16 11/16/23 History (Revlimid) doxazosin 2 mg tablet 8 mg PO DAILY 11/16/23 11/16/23 History levothyroxine 150 mcg tablet 150 mcg PO DAILY 11/16/23 11/16/23 History (Synthroid) omeprazole 20 mg capsule,delayed 20 mg PO DAILY 11/16/23 11/16/23 History release potassium citrate 10 mEq (1,080 10 meq PO DAILY 11/16/23 11/16/23 History mg) tablet,extended release tadalafil 5 mg tablet (Cialis) 5 mg PO DAILY 11/16/23 11/16/23 History venlafaxine 37.5 mg 37.5 mg PO DAILY 11/16/23 11/16/23 History capsule,extended release 24 hr Allergies Allergy/AdvReac Type Severity Reaction Status Date / Time cholestyramine Allergy Severe Weakness Verified 02/04/24 09:51 colesevelam [From WelChol] AdvReac Verified 02/04/24 09:51 colestipol AdvReac Verified 02/04/24 09:51 sildenafil AdvReac Verified 02/04/24 09:51 Exam Vital Signs (past 8 hours): - 02/04/24 09:51 Temperature 97.5 F L Pulse Rate 50 L Respiratory Rate 16 Blood Pressure 143/80 H Pulse Oximetry 98 Oxygen Delivery Method Room Air Oxygen Delivery Method Room Air Const General: healthy appearing Resp Effort & Inspection: normal respiratory effort Assessment & Plan Assessment and plan (1) History of colon polyps: Status: Acute (2) Gastroesophageal reflux: Qualifiers: Esophagitis presence: without esophagitis Qualified Code(s): K21.9 - Gastro-esophageal reflux disease without esophagitis Status: Acute Plan We discussed the risks and benefits of EGD and colonoscopy and he would like to proceed. Time-Based Coding :: [TOTAL MINUTES] spent with patient and on the chart (including review of chart, obtaining history, exam, reviewing outside data, placing orders, documenting exam and treatment plan, and counseling patient) on [DATE].
--- NOTE | 2024-02-04 11:21 | PM.OP.EC ---
Operative Date/Time/Diagnoses Date of procedure: 02/04/24 Time of procedure: 11:21 Pre-op diagnosis: History of tubulovillous adenoma Post-op diagnosis: same Procedure & Clinicians Study performed: EGD and colonoscopy Same procedure as scheduled: Yes Surgeon: Fracisco Pulido Procedure Notes Procedure in detail: Surgeon: Fracisco Pulido MD Anesthesia: Lia Jacobson DO Procedure in detail: A timeout was performed. A bite blocked was placed and monitors were attached to the patient. The patient was positioned in the left lateral decubitus position. Sedation was administered. Once the patient was sedated the endoscope was inserted through the bite block and passed through the esophagus and stomach and into the duodenum. No abnormalities were seen in the duodenal.. We then withdrew the scope into the stomach. There was mild antritis and random biopsies were taken from the antrum with cold forceps. The endoscope was retroflexed and no other abnormalities were noted. The endoscope was straightned and withdrawn into the esophagus. No abnormalities were seen in the esophagus. EGD findings: Mild antritis Next we repositioned the patient for a colonoscopy. A digital rectal exam was performed and was normal. The colonoscope was inserted and advanced to the cecum. The appendiceal orifice was identified and photographed. The scope was slowly withdrawn over greater than 6 minutes. There was 5 mm polyp in the ascending colon removed with a cold snare. There was a large, flat polyp in the ascending colon adjacent to an old tattoo. Polyp was proximally 2 cm long and quite narrow and seemed to fold near the hepatic flexure. We performed a saline lift with a proximally 7 mL of saline. We then removed the polyp piecemeal using a hot snare. The rest of the colon was normal. The scope was retroflexed in the rectum and no other abnormalities were seen. Colonoscopy findings: 5 mm polyp in the ascending colon, 2 cm long flat polyp in the ascending colon near the hepatic flexure and near old tattoo ink Total procedural EBL: 10 mL Scope withdrawal time: 34 minutes Sedation minutes: 43 minutes Post-procedure Disposition: PACU
[2024-02-04 11:24] VITALS: BP 103/72; PULSE 57; RESP 15; TEMP 36.5; O2SAT 93
[2024-02-04 11:29] VITALS: BP 108/70; PULSE 45; RESP 14; O2SAT 93
[2024-02-04 11:35] VITALS: BP 108/72; PULSE 42; RESP 14; TEMP 36.5; O2SAT 92
[2024-02-04 11:40] VITALS: BP 118/81; PULSE 58; RESP 12; O2SAT 93
[2024-02-04 11:46] VITALS: BP 117/75; PULSE 107; RESP 16; TEMP 36.5; O2SAT 96
== END 2024-02-04 12:00 | disposition home or self-care (01) ==
PROVIDERS: PCP Nurse Practitioner Family; Referring Provider Surgery; Visit Provider Surgery
PROC: 0DJ08ZZ Inspection of Upper Intestinal Tract, Via Natural or Artificial Opening Endoscopic (ICD-10-PCS; CPT 43235; principal; 2024-02-04 10:30)
PROC: 0DJD8ZZ Inspection of Lower Intestinal Tract, Via Natural or Artificial Opening Endoscopic (ICD-10-PCS; CPT 45378; 2024-02-04 10:30)
DX: Z12.11 Encounter for screening for malignant neoplasm of colon (principal); Z86.0101 Personal history of adenomatous and serrated colon polyps; K21.9 Gastro-esophageal reflux disease without esophagitis; F17.210 Nicotine dependence, cigarettes, uncomplicated; K29.50 Unspecified chronic gastritis without bleeding; D12.2 Benign neoplasm of ascending colon
CPT/HCPCS: 45381; 45385; 43239; J2704

== ENCOUNTER 2025-03-02 11:11 | Emergency (ER) | payer MEDICARE, OTHER, SELFPAY ==
[2025-03-02 11:26] VITALS: BP 158/93; PULSE 58; RESP 14; TEMP 36.1; O2SAT 98; BMI 34.2
--- NOTE | 2025-03-02 11:48 | PC.NURSE ---
Left lower leg pain, noted pain on inside of left calf with some lumps, pain radiates up inside of right knee and inner thigh. No new injury or trauma. 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 Denies chest pain or SOB. On oral chemo medication and one side effect to watch for is DVT, spoke with triage nurse at [facility] and advised to be evaluated
--- NOTE | 2025-03-02 11:58 | ED.EXTPRO ---
HPI - Extremity Problem <Star Mckeon PA-C - Last Filed: 03/02/25 14:19> General Chief complaint: Extremity Problem,Nontraumatic Stated complaint: wants US rule out DVT Time Seen by Provider: 03/02/25 11:57 Source: patient Mode of arrival: Ambulatory History of Present Illness HPI Narrative: This is a 59-year-old male presenting to the emergency department due to left lower extremity pain in the calf for the last day. He was reports a twinging sensation but also states that it ?feels bump here?. Denies any chest pain or shortness of breath. Denies any marked swelling to the left lower extremity but does state that it feels slightly bumpy year. History of varicose veins as well. On chemo and his oncologist recommended he rule out DVT. Related Data Home Medications ?Medication ?Instructions ?Recorded ?Confirmed aspirin 325 mg tablet,delayed 325 mg PO QDAY ##0 11/17/12 02/04/24 release lenalidomide 10 mg capsule 10 mg PO DAILY chemo ##0 03/21/16 11/16/23 (Revlimid) doxazosin 2 mg tablet 8 mg PO DAILY 11/16/23 11/16/23 levothyroxine 150 mcg tablet 150 mcg PO DAILY 11/16/23 11/16/23 (Synthroid) omeprazole 20 mg capsule,delayed 20 mg PO DAILY 11/16/23 11/16/23 release potassium citrate 10 mEq (1,080 10 meq PO DAILY 11/16/23 11/16/23 mg) tablet,extended release tadalafil 5 mg tablet (Cialis) 5 mg PO DAILY 11/16/23 11/16/23 venlafaxine 37.5 mg 37.5 mg PO DAILY 11/16/23 11/16/23 capsule,extended release 24 hr Allergies Allergy/AdvReac Type Severity Reaction Status Date / Time cholestyramine Allergy Severe Weakness Verified 03/02/25 11:25 colesevelam (From WelChol) AdvReac Verified 03/02/25 11:25 colestipol AdvReac Verified 03/02/25 11:25 sildenafil AdvReac Verified 03/02/25 11:25 Review of Systems <Star Mckeon PA-C - Last Filed: 03/02/25 14:19> Review of Systems Narrative: GENERAL: Denies chills, fatigue, malaise, fever, sweats. HEENT: Denies sinus pain, ear pain, sore throat, difficulty swallowing, dizziness. RESPIRATORY: Denies dyspnea, cough, wheezing, hemoptysis, sputum. CARDIOVASCULAR: Denies chest pain, palpitations, orthopnea, edema, GASTROINTESTINAL: Denies nausea, vomiting, abdominal pain, diarrhea, constipation, melena. : Denies dysuria, frequency, incontinence, hematuria, urinary retention. MUSCULOSKELETAL: Reports left lower extremity pain, denies weakness, joint pain, or bony pain SKIN: Denies rash, skin lesions, or other NEUROLOGIC: Denies weakness, headache, numbness, change in speech, confusion, seizures, incoordination. PSYCHIATRIC: No concerning psychosocial issues. 12 point review of systems is negative except for those stated above Patient History <Star Mckeon PA-C - Last Filed: 03/02/25 14:19> Medical History Chronic diarrhea Enlarged prostate Multiple myeloma Surgical History Previous back surgery Social History household members: spouse Smoking Status: Current some day smoker alcohol intake: former Smoking Status: Current some day smoker tobacco type: cigars alcohol intake frequency: other Exam <Star Mckeon PA-C - Last Filed: 03/02/25 14:19> Narrative Exam Narrative: GENERAL: Well-developed patient, in mild distress. HEAD: Atraumatic. Normocephalic. EYES: Pupils equal round and reactive. Extraocular motions intact. No scleral icterus. No injection or drainage. ENT: Nose without bleeding, purulent drainage. Throat without erythema, tonsillar hypertrophy or exudate. Airway patent. NECK: Trachea midline. Non tender EXTREMITIES: Mild tenderness to palpation to the left gastrocnemius. No significant edema or erythema noted. Neurovascularly intact throughout. NEURO: AOx3. SKIN: No rash or erythema of visible areas Initial Vital Signs Initial Vital Signs: Vital Signs Temperature 97.0 F L 03/02/25 11:26 Pulse Rate 58 L 03/02/25 11:26 Respiratory Rate 14 03/02/25 11:26 Blood Pressure 158/93 H 03/02/25 11:26 Pulse Oximetry 98 03/02/25 11:26 Oxygen Delivery Method Room Air 03/02/25 11:26 <Trent Tomlinson MD - Last Filed: 03/02/25 15:02> Initial Vital Signs Initial Vital Signs: Vital Signs Temperature 97.0 F L 03/02/25 11:26 Pulse Rate 58 L 03/02/25 11:26 Respiratory Rate 14 03/02/25 11:26 Blood Pressure 158/93 H 03/02/25 11:26 Pulse Oximetry 98 03/02/25 11:26 Oxygen Delivery Method Room Air 03/02/25 11:26 Course <Star Mckeon PA-C - Last Filed: 03/02/25 14:19> Orders Ordered: ED Orders 03/02/25 12:03 US periph venous low extrem lt Stat Vital Signs Vital signs: Vital Signs - 8 hr 03/02/25 11:26 03/02/25 14:04 Temperature 97.0 F L Pulse Rate 58 L 54 L Respiratory Rate 14 16 Blood Pressure 158/93 H 137/75 Pulse Oximetry 98 97 Oxygen Delivery Method Room Air Room Air <Trent Tomlinson MD - Last Filed: 03/02/25 15:02> Orders Ordered: ED Orders 03/02/25 12:03 US periph venous low extrem lt Stat Vital Signs Vital signs: Vital Signs - 8 hr 03/02/25 11:26 03/02/25 14:04 Temperature 97.0 F L Pulse Rate 58 L 54 L Respiratory Rate 14 16 Blood Pressure 158/93 H 137/75 Pulse Oximetry 98 97 Oxygen Delivery Method Room Air Room Air MDM - Extremity (Nontraumatic) <Star Mckeon PA-C - Last Filed: 03/02/25 14:19> Imaging Data US - DVT: Radiologist's Impression: [place] [address] Ultrasound Report Signed Patient: Trent Avila MR#: [id number] : 1965 Acct:[id number] Age/Sex: 59 / M Date of Service: 03/02/25 Loc: ED Accession Number: [id number] Procedure: US periph venous low extrem lt Ordering Provider: Star Mckeon PA-C PROCEDURE: US PERIPH VENOUS LOW EXTREM LT INDICATIONS: LEFT LEG PAIN. CURRENTLY ON CHEMO. TECHNIQUE: Real-time imaging, as well as color and pulse Doppler interrogation, were performed of the lower extremity deep veins from the inguinal ligament to the popliteal fossa, with documentation of the visualized calf veins. COMPARISON: None. FINDINGS: The common femoral, femoral, popliteal, and the visualized calf veins are normally compressible, and free of intraluminal thrombus. Color and pulse Doppler demonstrate normal phasic intraluminal flow. There is normal augmentation response to distal compression maneuver. IMPRESSION: No findings of lower extremity deep venous thrombosis. Dictated by: Haris Sheth M.D. on 03/02/2025 at 13:43 Approved by: Haris Sheth M.D. on 03/02/2025 at 13:43 [facility] Narrative Medical decision making narrative: ED course: This is a 59-year-old male presents to the emergency department due to left calf pain. This is no significant edema noted but patient is a history of cancer causing him to be increased risk for DVT. Ultrasound ordered which was negative. Patient does report increased work on the [employer] and this may be muscle strain. He was denying any chest pain shortness breath concern for PE. CC: Left calf pain Complicating co-morbidities: History of multiple myeloma Data collected from: Previous notes Medical records reviewed: Patient was last seen here a year ago due to back pain. History of chronic back pain as well as multiple myeloma followed by Oncology at [facility] in [place]. Was on aspirin 325 daily. Also has history of hypothyroidism. Differential considered, but not limited to: DVT, muscle strain Exam documented above, pertinent findings include: Mild tenderness to palpation to the left calf Lab Test results independently reviewed as above. Pertinent findings: None obtained Imaging studies independently reviewed: Ultrasound negative for DVT Scores Used: None MIPS Elements: None Consultations: None Treatments: None Re-evaluations: None Discussion: Discussed plan with the patient was comfortable with the plan Diagnosis: Muscle strain Disposition: see below, along with detailed discharge instructions that have been reviewed with patient as well as indications for ED re-evaluation and additional outpatient follow up Discharge Plan Departure Patient Disposition: Home Clinical Impression: Muscle strain Activity Restrictions/Additional Instructions: Thank you for coming to the [facility] Emergency Department today. As we discussed your ultrasound was negative for blood clot. I suspect this is a mild muscle strain. This should improve over time with rest and ibuprofen. Please return to the emergency department if you develop any chest pain, shortness of breath, so significant new or worsening swelling in the left leg, or any other concerning signs or symptoms. I hope you feel better soon. Please follow up with your primary care provider within a week if your symptoms continue. If you do not have a primary care provider please contact the [facility] Resource line at [phone]. They will ask some questions about your medical history and help you get set up with a provider in the community. Prescriptions: No Action aspirin 325 MG tablet,delayed release (DR/EC) 325 mg PO QDAY Qty: 0 lenalidomide [Revlimid] 10 MG capsule 10 mg PO DAILY Qty: 0 tadalafil [Cialis] 5 mg tablet 5 mg PO DAILY omeprazole 20 mg capsule,delayed release(DR/EC) 20 mg PO DAILY potassium citrate 10 mEq (1,080 mg) tablet extended release 10 meq PO DAILY levothyroxine [Synthroid] 150 mcg tablet 150 mcg PO DAILY venlafaxine 37.5 mg capsule,extended release 24hr 37.5 mg PO DAILY doxazosin 2 mg tablet 8 mg PO DAILY Referrals: Rain Caruso ARNP [Primary Care Provider, Nursing] Stand Alone Forms: Patient Portal/API ED Sign-out <Trent Tomlinson MD - Last Filed: 03/02/25 15:02> Cosign ED Attending Cosignature Attestation: I was immediately available in the department for consultation. ?This documentation has been reviewed and I agree with assessment and plan. Supervised by Trent Tomlinson MD
--- NOTE | 2025-03-02 12:03 | DI.US.S_ITS ---
PROCEDURE: US PERIPH VENOUS LOW EXTREM LT INDICATIONS: LEFT LEG PAIN. CURRENTLY ON CHEMO. TECHNIQUE: Real-time imaging, as well as color and pulse Doppler interrogation, were performed of the lower extremity deep veins from the inguinal ligament to the popliteal fossa, with documentation of the visualized calf veins. COMPARISON: None. FINDINGS: The common femoral, femoral, popliteal, and the visualized calf veins are normally compressible, and free of intraluminal thrombus. Color and pulse Doppler demonstrate normal phasic intraluminal flow. There is normal augmentation response to distal compression maneuver. IMPRESSION: No findings of lower extremity deep venous thrombosis. Dictated by: Haris Sheth M.D. on 03/02/2025 at 13:43 Approved by: Haris Sheth M.D. on 03/02/2025 at 13:43
[2025-03-02 14:04] VITALS: BP 137/75; PULSE 54; RESP 16; O2SAT 97
== END 2025-03-02 14:26 | disposition home or self-care (01) ==
PROVIDERS: Emergency Provider Physician Assistant Medical; PCP Nurse Practitioner Family
DX: S86.912A Strain of unspecified muscle(s) and tendon(s) at lower leg level, left leg, initial encounter (principal)
CPT/HCPCS: 93971; 99283

== ENCOUNTER 2025-03-06 07:36 | Emergency (ER) | payer MEDICARE, OTHER, SELFPAY ==
[2025-03-06] VITALS (7 sets, daily range): BP systolic 140–179; BP diastolic 75–104; PULSE 57–86; RESP 16; TEMP 36.6; O2SAT 97–99; BMI 36.4
--- NOTE | 2025-03-06 07:40 | ED_ITS ---
HPI - General Adult
--- NOTE | 2025-03-06 07:40 | ED.GENADULT ---
HPI - General Adult General Chief complaint: Extremity Problem,Nontraumatic Stated complaint: Still not feeling better ,Left leg pain Time Seen by Provider: 03/06/25 07:40 Source: patient, RN notes reviewed and old records reviewed Mode of arrival: Ambulatory Limitations: no limitations History of Present Illness HPI narrative: 59-year-old male with a history of multiple myeloma on Revlimid, hypertension, dyslipidemia, hypothyroidism on an aspirin 325 mg daily. Patient Re presents with seen here on 03/02/2025 for left leg pain had DVT ultrasound to evaluate for clot which was negative at that time. Patient states he has had increasing pain and noticed some redness swelling increasing discomfort of the calf inside of the knee and inner thigh since then. He states any sort of ambulation or walking seems to make it worse. Rest does help. He notes flexing of the knee seems to cause at tightness or discomfort behind the knee. He denies fevers or chills. No chest pain or shortness of breath. No nausea or vomiting. No other GI or urinary symptoms. No new numbness tingling or weakness. Patient states he tried resting over the weekend. He does not have any history of blood clots but notes he is on a medication that might increase his risk with a his Revlimid and multiple myeloma. No long distance travel. No estrogen. He denies any recent surgery. Does use cigars, no alcohol, no recreational drugs. Has not had any similar symptoms in the past. Related Data Home Medications ?Medication ?Instructions ?Recorded ?Confirmed aspirin 325 mg tablet,delayed 325 mg PO QDAY ##0 11/17/12 02/04/24 release lenalidomide 10 mg capsule 10 mg PO DAILY chemo ##0 03/21/16 11/16/23 (Revlimid) doxazosin 2 mg tablet 8 mg PO DAILY 11/16/23 11/16/23 levothyroxine 150 mcg tablet 150 mcg PO DAILY 11/16/23 11/16/23 (Synthroid) omeprazole 20 mg capsule,delayed 20 mg PO DAILY 11/16/23 11/16/23 release potassium citrate 10 mEq (1,080 10 meq PO DAILY 11/16/23 11/16/23 mg) tablet,extended release tadalafil 5 mg tablet (Cialis) 5 mg PO DAILY 11/16/23 11/16/23 venlafaxine 37.5 mg 37.5 mg PO DAILY 11/16/23 11/16/23 capsule,extended release 24 hr Previous Rx's ?Medication ?Instructions ?Recorded apixaban 5 mg (74 tabs) tablets in See Rx Instructions PO .COMPLEX 03/06/25 a dose pack #74 ea Allergies Allergy/AdvReac Type Severity Reaction Status Date / Time cholestyramine Allergy Severe Weakness Verified 03/06/25 07:43 colesevelam (From WelChol) AdvReac Verified 03/06/25 07:43 colestipol AdvReac Verified 03/06/25 07:43 sildenafil AdvReac Verified 03/06/25 07:43 Review of Systems Review of Systems ROS Unobtainable: All systems reviewed & are unremarkable except as noted in HPI and below Patient History Medical History Chronic diarrhea Enlarged prostate Multiple myeloma Surgical History Previous back surgery Social History household members: spouse alcohol intake: former tobacco type: cigars alcohol intake frequency: other Exam Narrative Exam Narrative: GENERAL: Alert and oriented x three, male in mild distress HEENT: Head normocephalic, atraumatic, EOMI, pupils reactive, face symmetric, moist mucous membranes NECK: Supple, full range of motion CARDIOVASCULAR: Regular rate and rhythm without murmurs, rubs or gallops. No JVD. No edema bilateral lower extremities. RESPIRATORY: Breath sounds equal bilaterally, no wheezes rales or rhonchi. ABDOMEN: Soft, nontender. Normoactive bowel sounds all 4 quadrants. No guarding or rebound, rigidity, no mass : No CVA tenderness EXTREMITIES: Normal range of motion, no clubbing. Neurovascularly intact. Patient has some mild induration erythema and swelling extending from just below with the calf behind the knee and a proximally mid thigh slight warmth. There was no fluctuance. There was no fluid collection. There was no edema of the leg itself. Patient has 2+ pulses bilaterally. Normal range of motion. Normal sensation. NEUROLOGICAL: Cranial nerves II through XII grossly intact. Moving all extremities SKIN: Warm, dry, no petechiae, no rashes or lesions otherwise noted. Initial Vital Signs Initial Vital Signs: Vital Signs Temperature 97.8 F 03/06/25 07:43 Pulse Rate 86 03/06/25 07:43 Respiratory Rate 16 03/06/25 07:43 Blood Pressure 179/104 H 03/06/25 07:43 Pulse Oximetry 99 03/06/25 07:43 Oxygen Delivery Method Room Air 03/06/25 07:43 Course Orders Ordered: ED Orders 03/06/25 07:47 US periph venous low extrem lt Stat 03/06/25 07:54 CBC Auto Diff [Complete Blood Count AUTO DIFF] Stat CMP [Comprehensive Metabolic Panel] Stat PTT Partial Thromboplastin Harish Stat Prothrombin Time INR Stat Discontinued Medications Apixaban (Apixaban 5 Mg Tablet) 10 mg PO NOW ONE Stop: 03/06/25 09:17 Last Admin: 03/06/25 09:28 Dose: 10 mg Documented By: ALPHONSO Vital Signs Vital signs: Vital Signs - 8 hr 03/06/25 09:11 03/06/25 09:12 03/06/25 09:12 Pulse Rate 64 57 L Blood Pressure 140/75 Pulse Oximetry 97 98 03/06/25 09:30 Pulse Rate 57 L Blood Pressure Pulse Oximetry 97 Medical Decision Making Lab Data 03/06/25 07:54 03/06/25 07:54 Labs: Lab Results 03/06/25 Range/Units 07:54 WBC 5.1 (4.5-11.0) X10^3/uL RBC 4.56 (4.5-5.9) X10^6/uL Hgb 13.0 L (13.5-17.5) g/dL Hct 38.1 L (41-53) % MCV 83.7 (80-100) fL MCH 28.6 (26-34) PG MCHC 34.2 (30-36) % RDW 14.6 (11.6-14.8) % Plt Count 181 (150-400) X10^3/uL Neut % (Auto) 50.0 (50-75) % Lymph % (Auto) 34.7 (25-40) % [place] % (Auto) 12.8 (3-14) % Eos % (Auto) 1.3 L (2-4) % Baso % (Auto) 1.2 (0-2) % Neut # (Auto) 2600 (4921-6968) /uL Lymph # (Auto) 1800 (6696-3459) /uL [place] # (Auto) 700 (0-900) /uL Eos # (Auto) 100 (0-450) /uL Baso # (Auto) 100 (0-100) /uL PT 11.1 (9.4-12.5) SECONDS INR 1.0 (0.9-1.3) APTT 26 (25.1-36.5) SECONDS Sodium 137 (137-145) mmol/L Potassium 3.8 (3.4-5.1) mmol/L Chloride 106 (98-107) mmol/L Carbon Dioxide 21 L (22-32) mmol/L BUN 13 (9-20) mg/dL Creatinine 0.99 (0.66-1.25) mg/dL Estimated GFR > 60 (>60) mL/min BUN/Creatinine Ratio 13.1 (6-22) Glucose 106 H (70-99) mg/dL Calcium 9.0 (8.4-10.2) mg/dL Total Bilirubin 0.8 (0.2-1.3) mg/dL AST 28 (17-59) IU/L ALT 28 (<50) IU/L Alkaline Phosphatase 63 (38-126) U/L Total Protein 8.2 (6.3-8.2) g/dL Albumin 4.4 (3.5-5.0) g/dL Globulin 3.8 (1.7-4.1) g/dL Albumin/Globulin Ratio 1.2 (1.0-2.8) MDM Narrative Medical decision making narrative: Labs normal white count, hemoglobin of 13 was 13.7 on 01/10/2017 platelets are 181, chemistries are appropriate CO2 is 21, BUN creatinine are normal glucose is 106. INR and PTT are normal. DVT ultrasound shows occlusive thrombus greater saphenous vein 3 Thursday thrombus extending of the left common femoral vein findings are new compared exam from 03/02/2021. 59-year-old male history of multiple myeloma on Revlimid and aspirin 325 we presents with left leg pain had DVT ultrasound that was negative on 03/02/2025 but patient has swelling and erythema along the inner calf, knee and thigh we will repeat but cellulitis is also on the differential. Patient's ultrasound does show new thrombus we will start on oral anticoagulant. Patient denies chest pain or shortness of breath, syncope vitals are appropriate. Did discuss with the patient he needs to return if he has any new chest pain shortness of breath or other concerning changes for re-evaluation for potential pulmonary embolism. Patient will follow up with his oncology team at [facility]. Discharge Plan Departure Patient Disposition: Home Clinical Impression: DVT (deep venous thrombosis) Instructions: DI for Deep Vein Thrombosis Activity Restrictions/Additional Instructions: Your workup today does show thrombus in the greater saphenous vein with a us mount of the mobile thrombus in the lumen of the common femoral vein. Stop your aspirin and start the Apixaban. You had your first dose in the ER today. Take oral anticoagulants as prescribed. Take 2 tablet twice daily x7 days, then 1 tablet a twice daily. Prescription sent to in [place]. Please return for fevers, any new chest pain or shortness of breath, any lightheadedness, syncope, increasing swelling redness or warmth of your lower extremity or other new or concerning changes. Prescriptions: New apixaban 5 mg (74 tabs) tablets,dose pack See Rx Instructions .ROUTE .COMPLEX Qty: 74 0RF Rx Instructions: Take 10mg (2 tablets) twice daily x 7 days, then 5mg (1 tablets) daily x 7 days. No Action aspirin 325 MG tablet,delayed release (DR/EC) 325 mg PO QDAY Qty: 0 lenalidomide [Revlimid] 10 MG capsule 10 mg PO DAILY Qty: 0 tadalafil [Cialis] 5 mg tablet 5 mg PO DAILY omeprazole 20 mg capsule,delayed release(DR/EC) 20 mg PO DAILY potassium citrate 10 mEq (1,080 mg) tablet extended release 10 meq PO DAILY levothyroxine [Synthroid] 150 mcg tablet 150 mcg PO DAILY venlafaxine 37.5 mg capsule,extended release 24hr 37.5 mg PO DAILY doxazosin 2 mg tablet 8 mg PO DAILY Referrals: Rain Caruso ARNP [Primary Care Provider, Nursing] Stand Alone Forms: Patient Portal/API
--- NOTE | 2025-03-06 07:47 | DI.US.S_ITS ---
PROCEDURE: US PERIPH VENOUS LOW EXTREM LT
[2025-03-06 08:07] LABS: Add Manual Diff / Slide Review NO; Hematocrit 38.1 % (41-53); Hemoglobin 13.0 g/dL (13.5-17.5); Lymphocytes Absolute Auto 1800 /uL (1100-4500); Mean Corpuscular HGB Conc 34.2 % (30-36); Mean Corpuscular Hemoglobin 28.6 PG (26-34); Mean Corpuscular Volume 83.7 fL (80-100); Platelet Count 181 X10^3/uL (150-400)
[2025-03-06 08:09] LABS: INR 1.0 (0.9-1.3); Prothrombin Time 11.1 SECONDS (9.4-12.5)
[2025-03-06 08:11] LABS: PTT Partial Thromboplastin Tim 26 SECONDS (25.1-36.5)
[2025-03-06 08:13] LABS: Alanine Aminotransferase 28 IU/L (<50); Albumin 4.4 g/dL (3.5-5.0); Albumin Globulin Ratio 1.2 (1.0-2.8); Alkaline Phosphatase 63 U/L (38-126); Blood Urea Nitrogen 13 mg/dL (9-20); Calcium 9.0 mg/dL (8.4-10.2); Carbon Dioxide 21 mmol/L (22-32); Chloride 106 mmol/L (98-107); Estimated Glomerular Filt Rate > 60 mL/min (>60); Globulin 3.8 g/dL (1.7-4.1); Glucose 106 mg/dL (70-99); HEMOLYSIS < 15 (0-50); Potassium 3.8 mmol/L (3.4-5.1); Sodium 137 mmol/L (137-145); Total Protein 8.2 g/dL (6.3-8.2)
--- NOTE | 2025-03-06 08:17 | PC.NURSE ---
US at bedside
[2025-03-06] MEDS: APIXABAN 5 MG TABLET 10 MG PO (09:28)
== END 2025-03-06 09:42 | disposition home or self-care (01) ==
PROVIDERS: Emergency Provider Emergency Medicine; PCP Nurse Practitioner Family
DX: I82.412 Acute embolism and thrombosis of left femoral vein (principal)
CPT/HCPCS: 36415; 80053; 85025; 85610; 85730; 93971; 99283; 99284